=== PATIENT | female | born 1955 | race Caucasian/White ===

== ENCOUNTER 2020-05-08 22:08 | Emergency (ER) | payer MEDICAID ==
[~2020-05-08] VITALS: Ht 165.1 cm; Wt 54.4 kg
[2020-05-08 22:10] VITALS: BP 132/84
[2020-05-08] MEDS ORDERED: NACL 0.9% 1,000 ML IV ONE ×2 (22:10→23:35)
--- NOTE | 2020-05-08 22:24 | NUR ---
64 Y/O FEMALE CLEMENCIA ALOC X1HR FROM HOME. PT A&OX1. C/O ABD PRESSURE PAIN 05/15. BS ACTIVE. BUE/BLE STRENGTH 2+. MEDHX: DENIES ALLERGIES: PENICILLINS
[2020-05-08 22:26] LABS: BASOPHILS % (AUTO) 0.4 % (0.0-2.0); EOSINOPHILS # (AUTO) 0.1 K/uL (0-0.4); HEMATOCRIT 37.4 % (36-48); HEMOGLOBIN 12.6 g/dL (12.0-16.0); LYMPHOCYTES # (AUTO) 1.3 K/uL (2.5-16.5); LYMPHOCYTES % (AUTO) 20.9 % (20.5-51.1); MEAN CORPUSCULAR HEMOGLOBIN 33 pg (27-31); MEAN CORPUSCULAR HGB CONC 34 g/dL (33-37); MEAN CORPUSCULAR VOLUME 97.2 fL (80-94); MONOCYTES # (AUTO) 0.3 K/uL (0.8-1.0); MONOCYTES % (AUTO) 4.8 % (1.7-9.3); NEUTROPHILS # (AUTO) 4.5 K/uL (1.8-7.7); NEUTROPHILS % (AUTO) 72.9 % (42.2-75.2); PLATELET COUNT (AUTO) 134 K/uL (140-450); RED BLOOD CELL COUNT(AUTO) 3.84 MIL/uL (4.20-5.40); WHITE BLOOD COUNT (AUTO) 6.2 K/uL (4.8-10.8)
--- NOTE | 2020-05-08 22:26 | NUR ---
PT TAKEN TO CT [facility]IA [facility]
[2020-05-08 22:42] LABS: ALBUMIN 4.2 g/dL (3.4-5.0); ANION GAP 13.2 (8-16); ASPARTATE AMINOTRANSFERASE 20 U/L (15-37); CHLORIDE 104 mmol/L (98-107); CREATININE 1.1 mg/dL (0.6-1.3); GFR ARICAN-AMERICAN 65 mL/min (>90); GLUCOSE 141 mg/dL (74-106); POTASSIUM 3.2 mmol/L (3.5-5.1); SODIUM SERUM 140 mmol/L (136-145); TOTAL BILIRUBIN 0.7 mg/dL (0.0-1.0); UREA NITROGEN, BLOOD 18 mg/dL (7-18)
--- NOTE | 2020-05-08 22:43 | NUR ---
PT RETURNED FROM CT VIA [facility]
[2020-05-08 22:52] LABS: ACETAMINOPHEN < 0.5 ug/ml (10-30); SALICYLATE < 2.8 mg/dL (2.8-20.0)
[2020-05-08] MEDS ORDERED: ONDANSETRON 4 MG/2 ML VIAL IVP ONE (23:00)
[2020-05-08] MEDS ORDERED: ACETAMINOPHEN EXTRA STRENGTH 500 MG TAB PO ONE (23:00)
--- NOTE | 2020-05-09 | NUR ---
PT STATES DIZZINESS. ERMD AWARE. NS CURRENTLY INFUISNG. VSS. WILL CONTINUE TO MONITOR.
[2020-05-09 00:03] LABS: BARBITURATE, URINE NEGATIVE ng/ml (NEG <=200)
[2020-05-09 00:04] LABS: BENZODIAZEPINE, URINE NEGATIVE ng/mL (NEG <=200); CANNABINOID, URINE NEGATIVE ng/mL (NEG <=50); COCAINE, URINE NEGATIVE ng/mL (NEG <=300); OPIATE, URINE NEGATIVE ng/mL (NEG <=2000); PHENCYCLIDINE SCREEN,URINE NEGATIVE ng/mL (NEG <=25)
[2020-05-09 01:45] VITALS: BP 132/84
--- NOTE | 2020-05-09 01:45 | NUR ---
Patient discharged with v/s stable. Written and verbal after care instructions given and explained. Patient verbalized understanding. Ambulatory with steady gait. IV Removed. ID Band Removed. All questions addressed prior to discharge. Advised to follow up with PMD.
== END 2020-05-09 01:45 | disposition home or self-care (01) ==
LOC: MED 22:08
DX: R41.82 Altered mental status, unspecified (principal); Z88.0 Allergy status to penicillin; Z85.3 Personal history of malignant neoplasm of breast; Z90.10 Acquired absence of unspecified breast and nipple
CPT/HCPCS: 36415; 70450; 80053; 80305; 85025; 96361; 96374; 99284; G0480; G0482; J2405; J7030